=== PATIENT | female | born 1970 | race Caucasian/White ===

== ENCOUNTER 2018-02-12 16:16 | Inpatient (IN) | payer MEDICAID ==
[~2018-02-12] VITALS: Ht 162.6 cm; Wt 97.8 kg
[2018-02-12] MEDS ORDERED: normal saline 1000ML IV soln IVB ONE (16:45)
[2018-02-12] MEDS ORDERED: iohexol 350MG/ML 100ml bottle IV ONE (16:50)
[2018-02-12 17:28] LABS: BASOPHILS # (AUTO) 0.1 X10'3 (0-0.2); BASOPHILS % (AUTO) 1.6 % (0-1); EOSINOPHILS # (AUTO) 0.1 X10'3 (0-0.9); EOSINOPHILS % (AUTO) 0.6 % (0-6); HEMATOCRIT 46.8 % (35.0-45.0); HEMOGLOBIN 16.2 g/dl (12.0-16.0); LYMPHOCYTES # (AUTO) 2.7 X10'3 (1.1-4.8); LYMPHOCYTES % (AUTO) 30.2 % (21-51); MEAN CORPUSCULAR HEMOGLOBIN 31.2 PG (27.0-31.0); MEAN CORPUSCULAR HGB CONC 34.6 % (33.0-36.5); MEAN CORPUSCULAR VOLUME 90.2 FL (78-98); MEAN PLATELET VOLUME 7.2 FL (7.4-10.4); MONOCYTES # (AUTO) 0.5 X10'3 (0-0.9); MONOCYTES % (AUTO) 5.6 % (2-12); NEUTROPHILS # (AUTO) 5.5 X10'3 (1.8-7.7); PLATELET COUNT 394 X10'3 (140-440); RED BLOOD COUNT 5.19 X10'6 (4.20-5.60); RED CELL DISTRIBUTION WIDTH 14.6 % (11.5-14.5); WHITE BLOOD COUNT 8.9 X10'3 (4.5-11.0)
[2018-02-12] MEDS: MESSAGE TO NURSING PO NR ×2 (17:38→18:09)
[2018-02-12 17:41] LABS: INR 1.6 INR; PARTIAL THROMBOPLASTIN TIME 33 SECONDS (22-32); PROTHROMBIN TIME 16.6 SECONDS (9.0-12.0)
[2018-02-12] MEDS ORDERED: aspirin 325mg tablet PO ONE ×2 (17:50→21:55)
[2018-02-12] MEDS ORDERED: metoprolol tartrate 1mg/ml inj IV ONE (18:00)
[2018-02-12] MEDS ORDERED: metoprolol tartrate 50mg tablet PO ONE (18:00)
[2018-02-12] MEDS ORDERED: LORazepam 2 mg/ml vial IV ONE ×2 (18:00→20:10)
[2018-02-12 18:45] LABS: CLARITY,URINE CLEAR (Clear); COLOR,URINE YELLOW (Yellow); GLUCOSE, URINE 500 mg/dl (Neg); KETONES,URINE NEGATIVE (Neg); LEUKOCYTE ESTERASE ,URINE NEGATIVE (Neg); NITRITES, URINE NEGATIVE (Neg); OCCULT BLOOD,URINE LARGE (Neg); PROTEIN,URINE NEGATIVE (Neg); UROBILINOGEN,URINE 0.2 E.U/dL (0.2-1.0)
[2018-02-12 18:50] LABS: UA COLLECTION TYPE CLN CATCH MIDSTREAM
[2018-02-12 18:51] LABS: BACTERIA,URINE NONE SEEN /HPF (Neg); SQUAMOUS EPITHELIAL CELL,UR FEW /LPF (FEW); WBC,URINE NONE SEEN /HPF (0-4)
[2018-02-12 19:02] LABS: ALANINE AMINOTRANSFERASE 42 U/L (12-78); ALBUMIN/GLOBULIN RATIO 0.8 (1.1-1.5); ALKALINE PHOSPHATASE 67 IU/L (46-116); ANION GAP 9 (8-16); ASPARTATE AMINO TRANSFERASE 19 U/L (10-37); BILIRUBIN,TOTAL 0.2 MG/DL (0.1-1.0); BLOOD UREA NITROGEN 11 MG/DL (7-18); BUN/CREATININE RATIO 12.6 (6.6-38.0); CALCIUM 7.9 MG/DL (8.5-10.1); CHLORIDE 105 MMOL/L (99-107); CREATININE 0.87 MG/DL (0.40-0.90); GLUCOSE 208 MG/DL (70-104); POTASSIUM 3.7 MMOL/L (3.5-5.1); SODIUM 138 MMOL/L (135-145); TOTAL CARBON DIOXIDE 23.6 MMOL/L (24-32); TOTAL PROTEIN 6.7 G/DL (6.4-8.2); eGFR 70 ML/MIN
[2018-02-12] MEDS ORDERED: morphine 4 MG/ML inj SYRINge IV PRN (21:55)
[2018-02-12] MEDS ORDERED: acetaminophen 325mg tablet PO PRN ×2 (21:55)
[2018-02-12] MEDS ORDERED: nitroGLYCERIN 0.4mg SUBLingual tab SL PRN (21:55)
[2018-02-12 23:04] LABS: CHOL/HDL RATIO 6.3 (0.00-4.99); CHOLESTEROL 165 MG/DL (0-200); HDL CHOLESTEROL 26 MG/DL (35-60); LDL CHOLESTEROL 81 MG/DL (50-100); TRIGLYCERIDES 553 MG/DL (20-135)
[2018-02-13] VITALS (8 sets, daily range): BP systolic 115–160; BP diastolic 72–99
[2018-02-13] MEDS ORDERED: WARF1TAB83 PO (01:52)
[2018-02-13] MEDS ORDERED: CHOL10002 (01:52)
[2018-02-13] MEDS ORDERED: WARF-55 PO (01:52)
[2018-02-13] MEDS ORDERED: CHOL2000 PO (01:52)
[2018-02-13] MEDS ORDERED: MONVCR (01:52)
[2018-02-13] MEDS ORDERED: MYCOL30CR TP (01:52)
[2018-02-13] MEDS ORDERED: GLIM4TAB79 PO (01:52)
[2018-02-13] MEDS ORDERED: LOSA100T28 PO (01:52)
[2018-02-13] MEDS ORDERED: METF10004 PO (01:52)
[2018-02-13] MEDS ORDERED: BENZ-49 PO (01:52)
[2018-02-13] MEDS ORDERED: ATOR-2 PO (01:52)
[2018-02-13] MEDS ORDERED: LORazepam 0.5 MG tablet PO PRN (02:35)
[2018-02-13 05:47] LABS: BASOPHILS % (AUTO) 0.3 % (0-1); EOSINOPHILS # (AUTO) 0.2 X10'3 (0-0.9); EOSINOPHILS % (AUTO) 1.7 % (0-6); HEMATOCRIT 41.4 % (35.0-45.0); HEMOGLOBIN 14.3 g/dl (12.0-16.0); LYMPHOCYTES # (AUTO) 2.5 X10'3 (1.1-4.8); LYMPHOCYTES % (AUTO) 25.7 % (21-51); MEAN CORPUSCULAR HEMOGLOBIN 31.3 PG (27.0-31.0); MEAN CORPUSCULAR HGB CONC 34.4 % (33.0-36.5); MEAN CORPUSCULAR VOLUME 90.9 FL (78-98); MEAN PLATELET VOLUME 7.2 FL (7.4-10.4); MONOCYTES # (AUTO) 0.6 X10'3 (0-0.9); MONOCYTES % (AUTO) 6.2 % (2-12); NEUTROPHILS # (AUTO) 6.4 X10'3 (1.8-7.7); NEUTROPHILS % (AUTO) 66.1 % (42-75); PLATELET COUNT 340 X10'3 (140-440); RED BLOOD COUNT 4.56 X10'6 (4.20-5.60); RED CELL DISTRIBUTION WIDTH 14.5 % (11.5-14.5); WHITE BLOOD COUNT 9.7 X10'3 (4.5-11.0)
[2018-02-13 06:31] LABS: ALANINE AMINOTRANSFERASE 38 U/L (12-78); ALBUMIN 2.7 G/DL (3.4-5.0); ALBUMIN/GLOBULIN RATIO 0.8 (1.1-1.5); ALKALINE PHOSPHATASE 60 IU/L (46-116); ANION GAP 10 (8-16); ASPARTATE AMINO TRANSFERASE 17 U/L (10-37); BILIRUBIN,TOTAL 0.2 MG/DL (0.1-1.0); BLOOD UREA NITROGEN 14 MG/DL (7-18); BUN/CREATININE RATIO 17.1 (6.6-38.0); CALCIUM 8.1 MG/DL (8.5-10.1); CHLORIDE 105 MMOL/L (99-107); CREATININE 0.82 MG/DL (0.40-0.90); GLUCOSE 252 MG/DL (70-104); POTASSIUM 3.8 MMOL/L (3.5-5.1); SODIUM 139 MMOL/L (135-145); TOTAL PROTEIN 6.2 G/DL (6.4-8.2); eGFR 75 ML/MIN
[2018-02-13] MEDS: metoprolol tartrate 25mg tablet PO SCH ×2 (08:25→20:00)
[2018-02-13] MEDS: aspirin 81mg tablet.DR PO SCH (08:30)
[2018-02-13] MEDS: fenofibrate 145mg tablet PO SCH (08:30)
[2018-02-13 09:13] LABS: INR 1.6 INR; PROTHROMBIN TIME 16.4 SECONDS (9.0-12.0)
[2018-02-13] MEDS ORDERED: midazolam 2 mg/2 ml injection ONE (09:14)
[2018-02-13] MEDS ORDERED: fentaNYL/PF 50MCG/1 ML 2ML syringe ONE (09:14)
[2018-02-13] MEDS ORDERED: iohexol 350MG/ML 100ml bottle IV ONE (09:14)
[2018-02-13] MEDS ORDERED: LIDOcaine 1% w/EPI 1:100,000 30ml vial (MDV) ONE (09:14)
[2018-02-13] MEDS ORDERED: HYDROcodone/acetaminophen 10/325mg tab PO PRN (11:45)
[2018-02-13] MEDS ORDERED: OXAZEpam 15mg capsule PO PRN (11:45)
[2018-02-13] MEDS ORDERED: ondansetron/PF 4mg/2ml inj IV PRN (11:45)
[2018-02-13] MEDS ORDERED: proCHLORperazine 10 MG/2 ml inj IV PRN (11:45)
[2018-02-13] MEDS ORDERED: acetaminophen 325mg tablet PO PRN (11:45)
[2018-02-13] MEDS ORDERED: HYDROcodone/acetaminophen 5mg/325mg tablet PO PRN (11:45)
[2018-02-13] MEDS ORDERED: MESSAGE TO NURSING PO ONE ×4 (12:40)
[2018-02-13] MEDS ORDERED: dextrose 50%-water 50ml dispensing syringe IV PRN ×3 (12:40→15:05)
[2018-02-13 13:32] LABS: HEMATOCRIT 42.5 % (35.0-45.0); HEMOGLOBIN 14.6 g/dl (12.0-16.0); MEAN CORPUSCULAR HEMOGLOBIN 31.1 PG (27.0-31.0); MEAN CORPUSCULAR HGB CONC 34.2 % (33.0-36.5); MEAN CORPUSCULAR VOLUME 90.7 FL (78-98); MEAN PLATELET VOLUME 6.8 FL (7.4-10.4); PLATELET COUNT 333 X10'3 (140-440); RED BLOOD COUNT 4.69 X10'6 (4.20-5.60); RED CELL DISTRIBUTION WIDTH 14.6 % (11.5-14.5); WHITE BLOOD COUNT 9.6 X10'3 (4.5-11.0)
[2018-02-13 13:42] LABS: ALBUMIN 2.9 G/DL (3.4-5.0); ANION GAP 6 (8-16); BLOOD UREA NITROGEN 11 MG/DL (7-18); BUN/CREATININE RATIO 15.9 (6.6-38.0); CALCIUM 8.3 MG/DL (8.5-10.1); CHLORIDE 104 MMOL/L (99-107); CREATININE 0.69 MG/DL (0.40-0.90); GLUCOSE 243 MG/DL (70-104); INR 1.5 INR; PARTIAL THROMBOPLASTIN TIME 29 SECONDS (22-32); POTASSIUM 3.8 MMOL/L (3.5-5.1); PROTHROMBIN TIME 15.1 SECONDS (9.0-12.0); SODIUM 136 MMOL/L (135-145); TOTAL CARBON DIOXIDE 25.8 MMOL/L (24-32); eGFR > 90 ML/MIN
[2018-02-13 14:04] LABS: HEMOGLOBIN A1C 9.3 % (4.5-6.2)
[2018-02-13] MEDS ORDERED: dextrose ORAL solution 15 GM/59 ML bottle PO PRN ×2 (15:05)
[2018-02-13] MEDS ORDERED: glucagon, human recombinant 1mg kit SUBCUT PRN (15:05)
[2018-02-13] MEDS ORDERED: MESSAGE TO PHARMACY PO ONE (15:05)
[2018-02-13] MEDS ORDERED: LORazepam 2 mg/ml vial IV ONE (16:45)
[2018-02-13] MEDS: insulin Lispro (HumaLOG) vial - multi-dose SQ SCH (19:16)
[2018-02-13] MEDS: mupirocin 2% nasal ointment 1gm UD NS SCH (20:00)
[2018-02-13 20:01] LABS: ABG BASE EXCESS -0.6 mmol/L (-2.0-3.0); ABG HCO3 23.3 mmol/L (22.0-26.0); ABG OXYGEN SATURATION 95.3 % (95-98); ABG PCO2 (T) 35.5 mmHg (32.0-45.0); ABG PH (T) 7.432 (7.350-7.450); ABG PO2 (T) 75.9 mmHg (83-108); ALLEN'S TEST Positive; FCOHb 0.7 % (0.5-1.5); FMetHb 0.3 % (0.3-1.12); FO2Hb 94.3 % (94-100); PATIENT TEMPERATURE 36.7; RESPIRATORY RATE (OBSERVED) 16 b/min
[2018-02-13] MEDS ORDERED: insulin glargine (Lantus) pen - multi-dose SQ SCH (21:00)
[2018-02-14] VITALS (14 sets, daily range): BP systolic 92–162; BP diastolic 55–96
[2018-02-14] MEDS ORDERED: vancomycin/NS 1 GM ADD-VANTAGE 250 ML IV ONE (05:30)
[2018-02-14] MEDS ORDERED: Cefazolin 2GM/100ML NS IVPB 100 ML IV ONE (05:30)
[2018-02-14] MEDS ORDERED: insulin Lispro (HumaLOG) vial - multi-dose SQ SCH (05:30)
[2018-02-14 05:56] LABS: BASOPHILS % (AUTO) 0.2 % (0-1); EOSINOPHILS # (AUTO) 0.2 X10'3 (0-0.9); EOSINOPHILS % (AUTO) 1.5 % (0-6); HEMATOCRIT 41.1 % (35.0-45.0); HEMOGLOBIN 14.3 g/dl (12.0-16.0); LYMPHOCYTES # (AUTO) 2.5 X10'3 (1.1-4.8); LYMPHOCYTES % (AUTO) 23.8 % (21-51); MEAN CORPUSCULAR HEMOGLOBIN 31.6 PG (27.0-31.0); MEAN CORPUSCULAR HGB CONC 34.9 % (33.0-36.5); MEAN CORPUSCULAR VOLUME 90.6 FL (78-98); MEAN PLATELET VOLUME 6.9 FL (7.4-10.4); MONOCYTES # (AUTO) 0.6 X10'3 (0-0.9); MONOCYTES % (AUTO) 5.9 % (2-12); NEUTROPHILS # (AUTO) 7.3 X10'3 (1.8-7.7); NEUTROPHILS % (AUTO) 68.6 % (42-75); PLATELET COUNT 350 X10'3 (140-440); RED BLOOD COUNT 4.54 X10'6 (4.20-5.60); RED CELL DISTRIBUTION WIDTH 14.5 % (11.5-14.5); WHITE BLOOD COUNT 10.7 X10'3 (4.5-11.0)
[2018-02-14 06:06] LABS: INR 1.2 INR; PROTHROMBIN TIME 12.5 SECONDS (9.0-12.0)
[2018-02-14 06:13] LABS: ALBUMIN 2.9 G/DL (3.4-5.0); ANION GAP 8 (8-16); BLOOD UREA NITROGEN 12 MG/DL (7-18); BUN/CREATININE RATIO 17.1 (6.6-38.0); CALCIUM 8.1 MG/DL (8.5-10.1); CHLORIDE 104 MMOL/L (99-107); GLUCOSE 205 MG/DL (70-104); POTASSIUM 3.7 MMOL/L (3.5-5.1); SODIUM 138 MMOL/L (135-145); TOTAL CARBON DIOXIDE 25.6 MMOL/L (24-32); eGFR 90 ML/MIN
[2018-02-14] MEDS: fenofibrate 145mg tablet PO SCH (07:08)
[2018-02-14] MEDS: metoprolol tartrate 25mg tablet PO SCH (07:08)
[2018-02-14] MEDS: aspirin 81mg tablet.DR PO SCH (07:45)
[2018-02-14] MEDS: mupirocin 2% nasal ointment 1gm UD NS SCH ×2 (07:45→20:11)
[2018-02-14] MEDS: insulin Lispro (HumaLOG) vial - multi-dose SQ SCH ×2 (07:52→18:00)
[2018-02-14] MEDS ORDERED: atorvastatin 20mg tablet PO SCH (08:00)
[2018-02-14] MEDS ORDERED: MESSAGE TO NURSING PO ONE (10:00)
[2018-02-14] MEDS: MESSAGE TO NURSING PO NR (11:26)
[2018-02-14] MEDS ORDERED: MIDAZolam 1mg/ml 10ml vial ONE (12:08)
[2018-02-14] MEDS ORDERED: SUFENTANIL CITRATE 50 MCG/ML 2ml ampule IV ONE (12:08)
[2018-02-14] MEDS ORDERED: pancuronium br 1mg/ml inj IV ONE (12:10)
[2018-02-14] MEDS ORDERED: propofol inj 20 ML IV ONE (12:10)
[2018-02-14] MEDS ORDERED: LIDOcaine 2% (20mg/ml) 5ml vial ONE (12:10)
[2018-02-14] MEDS ORDERED: protamine sulf. 10mg/ml inj. IV ONE (12:22)
[2018-02-14] MEDS ORDERED: labetalol 5mg/ml 20ml inj. IV ONE ×2 (12:22→13:30)
[2018-02-14] MEDS ORDERED: sevoflurane 250ml liquid IH ONE (12:22)
[2018-02-14 13:30] LABS: ABG BASE EXCESS -0.5 mmol/L (-2.0-3.0); ABG HCO3 23.5 mmol/L (22.0-26.0); ABG OXYGEN SATURATION 99.2 % (95-98); ABG PCO2 36.5 mmHg (35.0-45.0); ABG PH 7.427 (7.350-7.450); ABG PO2 358.6 mmHg (60.0-100.0); CL (ABG) 107 mmol/L (99-107); FCOHb 0.6 % (0.5-1.5); FMetHb 0.1 % (0.3-1.12); FO2Hb 98.5 % (94-100); GLUCOSE (ABG) 189 mg/dl (70-105); IONIZED CA (ABG) 1.06 mmol/L (1.03-1.32); K (ABG) 3.2 mmol/L (3.3-5.1); NA (ABG) 134 mmol/L (135-145); TOTAL HEMOGLOBIN 13.2 G/dl (12.0-16.0)
[2018-02-14] MEDS ORDERED: heparin 10,000 units/1 ML INJ IJ ONE (13:36)
[2018-02-14] MEDS ORDERED: papaverine 30 mg/ml 2ml inj. IA ONE (13:36)
[2018-02-14 14:21] LABS: ABG BASE EXCESS VENOUS -3.8 mmol/L; ABG HCO3 VENOUS 22.5 mmol/L; ABG PCO2 VENOUS 45.9 mmHg; ABG PO2 VENOUS 41.4 mmHg; CL (ABG) 105 mmol/L (99-107); FHHb VENOUS 27.2 %; FMetHb VENOUS 0.3 %; FO2Hb VENOUS 71.5 %; GLUCOSE (ABG) 147 mg/dl (70-105); IONIZED CA (ABG) 1.08 mmol/L (1.03-1.32); K (ABG) 3.4 mmol/L (3.3-5.1); NA (ABG) 134 mmol/L (135-145); TOTAL HEMOGLOBIN 12.8 G/dl (12.0-16.0)
[2018-02-14] MEDS ORDERED: fentaNYL /PF 50mcg/ml 5ml ampule ONE ×2 (14:21)
[2018-02-14 14:31] LABS: ACT @ 1.70 U 270 SEC (193-297); ACT @ 2.84 U 406 SEC (260-420); BASELINE ACT 129 SEC (101-148); PATIENT WEIGHT 94.0k KG
[2018-02-14 14:45] LABS: ABG BASE EXCESS -0.3 mmol/L (-2.0-3.0); ABG OXYGEN SATURATION 98.7 % (95-98); ABG PCO2 43.8 mmHg (35.0-45.0); ABG PH 7.374 (7.350-7.450); ABG PO2 408.8 mmHg (60.0-100.0); CL (ABG) 104 mmol/L (99-107); FCOHb 0.3 % (0.5-1.5); FMetHb 0.7 % (0.3-1.12); FO2Hb 97.7 % (94-100); GLUCOSE (ABG) 132 mg/dl (70-105); IONIZED CA (ABG) 0.85 mmol/L (1.03-1.32); K (ABG) 4.8 mmol/L (3.3-5.1); NA (ABG) 131 mmol/L (135-145); TOTAL HEMOGLOBIN 9.3 G/dl (12.0-16.0)
[2018-02-14 15:01] LABS: ABG BASE EXCESS VENOUS -0.1 mmol/L; ABG HCO3 VENOUS 26.3 mmol/L; ABG PCO2 VENOUS 51.4 mmHg; ABG PO2 VENOUS 49.1 mmHg; CL (ABG) 106 mmol/L (99-107); FCOHb VENOUS 0.3 %; FHHb VENOUS 19.1 %; FMetHb VENOUS 0.7 %; FO2Hb VENOUS 79.9 %; GLUCOSE (ABG) 136 mg/dl (70-105); IONIZED CA (ABG) 0.95 mmol/L (1.03-1.32); K (ABG) 4.2 mmol/L (3.3-5.1); NA (ABG) 134 mmol/L (135-145)
[2018-02-14 15:35] LABS: ABG HCO3 28.7 mmol/L (22.0-26.0); ABG OXYGEN SATURATION 98.6 % (95-98); ABG PCO2 49.6 mmHg (35.0-45.0); CL (ABG) 108 mmol/L (99-107); FCOHb 0.3 % (0.5-1.5); FMetHb 0.6 % (0.3-1.12); FO2Hb 97.7 % (94-100); GLUCOSE (ABG) 127 mg/dl (70-105); K (ABG) 3.8 mmol/L (3.3-5.1); NA (ABG) 135 mmol/L (135-145); TOTAL HEMOGLOBIN 9.8 G/dl (12.0-16.0)
[2018-02-14 16:25] LABS: ABG HCO3 VENOUS 15.9 mmol/L; ABG PCO2 VENOUS 30.2 mmHg; ABG PO2 VENOUS 39.5 mmHg; CL (ABG) 107 mmol/L (99-107); FCOHb VENOUS 0.9 %; FHHb VENOUS 29.3 %; FO2Hb VENOUS 68.8 %; GLUCOSE (ABG) 66 mg/dl (70-105); K (ABG) 3.8 mmol/L (3.3-5.1); NA (ABG) 131 mmol/L (135-145); TOTAL HEMOGLOBIN 6.5 G/dl (12.0-16.0)
[2018-02-14 16:40] LABS: ABG BASE EXCESS VENOUS -6.3 mmol/L; ABG HCO3 VENOUS 18.4 mmol/L; ABG PCO2 VENOUS 33.6 mmHg; ABG PO2 VENOUS 34.3 mmHg; CL (ABG) 108 mmol/L (99-107); FCOHb VENOUS 0.9 %; FMetHb VENOUS 0.7 %; FO2Hb VENOUS 63.4 %; GLUCOSE (ABG) 70 mg/dl (70-105); IONIZED CA (ABG) 1.12 mmol/L (1.03-1.32); K (ABG) 3.9 mmol/L (3.3-5.1); NA (ABG) 133 mmol/L (135-145); TOTAL HEMOGLOBIN 9.3 G/dl (12.0-16.0)
[2018-02-14] MEDS ORDERED: miconazole nitrate 2% 45gm VAG cream VG PRN (17:00)
[2018-02-14] MEDS ORDERED: benzonatate 100mg capsule PO PRN (17:00)
[2018-02-14] MEDS ORDERED: sodium chloride 0.45% 1,000 ML IV SCH (17:01)
[2018-02-14] MEDS ORDERED: nitroGLYCERIN-Tridil 50MG/D5W 250 ML IV PRN (17:01)
[2018-02-14] MEDS ORDERED: DOPamine 400mg/D5W 250ml 250 ML IV PRN (17:01)
[2018-02-14] MEDS ORDERED: niCARDipine/sod cl 20mg/200ml 200 ML IV PRN (17:01)
[2018-02-14] MEDS ORDERED: ondansetron/PF 4mg/2ml inj IV PRN (17:05)
[2018-02-14] MEDS ORDERED: acetaminophen 325mg tablet PO PRN (17:05)
[2018-02-14] MEDS ORDERED: metoclopramide 5 mg/ml inj IV PRN (17:05)
[2018-02-14] MEDS ORDERED: magnesium 2GM in 50ml NS 50 ML IV PRN (17:05)
[2018-02-14] MEDS ORDERED: magnesium hydroxide 30ml (MOM) UD suspension PO PRN (17:05)
[2018-02-14] MEDS ORDERED: magnesium 4gm in 100ml NS 100 ML IV PRN (17:05)
[2018-02-14] MEDS ORDERED: potassium Cl 20mEq/100mL bag 100 ML IV PRN ×2 (17:05)
[2018-02-14] MEDS ORDERED: dextrose 50%-water 50ml dispensing syringe IV PRN (17:05)
[2018-02-14] MEDS ORDERED: sodium phosphate inj. 15 MMOL in dextrose 5%-water 150 ML IV PRN (17:05)
[2018-02-14] MEDS ORDERED: Neutra Phos packet PO PRN (17:05)
[2018-02-14] MEDS ORDERED: sodium phosphate inj. 30 MMOL in dextrose 5%-water 250 ML IV PRN (17:05)
[2018-02-14] MEDS ORDERED: normal saline 250ml IV soln 250 ML IV PRN (17:05)
[2018-02-14 17:16] LABS: ABG BASE EXCESS -1.5 mmol/L (-2.0-3.0); ABG HCO3 24.8 mmol/L (22.0-26.0); ABG OXYGEN SATURATION 94.9 % (95-98); ABG PCO2 (T) 46.9 mmHg (32.0-45.0); ABG PH (T) 7.339 (7.350-7.450); ABG PO2 (T) 81.7 mmHg (83-108); FCOHb 0.3 % (0.5-1.5); FMetHb 0.3 % (0.3-1.12); FO2Hb 94.3 % (94-100); MINUTE VOLUME 8 L/min; PATIENT TEMPERATURE 36.7; PEEP 5 cm H2O; RESPIRATORY RATE 10 b/min; RESPIRATORY RATE (OBSERVED) 10 b/min; TIDAL VOLUME 650 mL; TOTAL HEMOGLOBIN 13.5 G/dl (12.0-16.0)
[2018-02-14 17:20] LABS: BASOPHILS % (AUTO) 0.1 % (0-1); EOSINOPHILS % (AUTO) 0 % (0-6); HEMATOCRIT 37.5 % (35.0-45.0); HEMOGLOBIN 12.8 g/dl (12.0-16.0); LYMPHOCYTES # (AUTO) 1.1 X10'3 (1.1-4.8); LYMPHOCYTES % (AUTO) 7.1 % (21-51); MEAN CORPUSCULAR HGB CONC 34.1 % (33.0-36.5); MEAN PLATELET VOLUME 6.5 FL (7.4-10.4); MONOCYTES # (AUTO) 1.1 X10'3 (0-0.9); MONOCYTES % (AUTO) 6.8 % (2-12); NEUTROPHILS # (AUTO) 13.9 X10'3 (1.8-7.7); PLATELET COUNT 245 X10'3 (140-440); RED BLOOD COUNT 4.13 X10'6 (4.20-5.60); RED CELL DISTRIBUTION WIDTH 14.3 % (11.5-14.5); WHITE BLOOD COUNT 16.2 X10'3 (4.5-11.0)
[2018-02-14 17:36] LABS: ALANINE AMINOTRANSFERASE 28 U/L (12-78); ALBUMIN 2.4 G/DL (3.4-5.0); ALKALINE PHOSPHATASE 41 IU/L (46-116); ANION GAP 8 (8-16); BILIRUBIN,TOTAL 0.6 MG/DL (0.1-1.0); BLOOD UREA NITROGEN 8 MG/DL (7-18); BUN/CREATININE RATIO 9.9 (6.6-38.0); CALCIUM 7.9 MG/DL (8.5-10.1); CHLORIDE 112 MMOL/L (99-107); CREATININE 0.81 MG/DL (0.40-0.90); GLUCOSE 140 MG/DL (70-104); MAGNESIUM 2.9 MG/DL (1.5-2.4); SODIUM 145 MMOL/L (135-145); TOTAL CARBON DIOXIDE 25.4 MMOL/L (24-32); TOTAL PROTEIN 4.9 G/DL (6.4-8.2); eGFR 76 ML/MIN
[2018-02-14 17:37] LABS: ASPARTATE AMINO TRANSFERASE 46 U/L (10-37); PHOSPHORUS 2.2 MG/DL (2.3-4.5); POTASSIUM 4.3 MMOL/L (3.5-5.1)
[2018-02-14 17:44] LABS: INR 1.2 INR; PARTIAL THROMBOPLASTIN TIME 27 SECONDS (22-32); PROTHROMBIN TIME 12.6 SECONDS (9.0-12.0)
[2018-02-14] MEDS: morphine 4 MG/ML inj SYRINge IV PRN ×3 (17:49→21:54)
[2018-02-14] MEDS: insulin regular, human inj. 100 UNITS in normal saline 100ml IV soln 100 ML IV SCH ×10 (19:00→23:23)
[2018-02-14] MEDS: potassium Cl 20mEq/100mL bag 100 ML IV PRN (19:14)
[2018-02-14] MEDS: docusate sod 100mg capsule PO SCH (20:00)
[2018-02-14] MEDS: vancomycin/NS 1 GM ADD-VANTAGE 250 ML IV SCH (20:12)
[2018-02-14] MEDS: albumin (Human) 5% 250ml 250 ML IV PRN ×2 (20:23→21:53)
[2018-02-15] VITALS (24 sets, daily range): BP systolic 79–122; BP diastolic 54–72
[2018-02-15] MEDS: insulin regular, human inj. 100 UNITS in normal saline 100ml IV soln 100 ML IV SCH ×18 (00:10→23:12)
[2018-02-15] MEDS: ceFAZolin 1GM/D5W- ADD-VANTAGE 50 ML IV SCH ×4 (00:11→23:59)
[2018-02-15 00:45] LABS: ALBUMIN 3.2 G/DL (3.4-5.0); ANION GAP 8 (8-16); BLOOD UREA NITROGEN 13 MG/DL (7-18); BUN/CREATININE RATIO 13.8 (6.6-38.0); CALCIUM 8.3 MG/DL (8.5-10.1); CHLORIDE 113 MMOL/L (99-107); CREATININE 0.94 MG/DL (0.40-0.90); GLUCOSE 208 MG/DL (70-104); POTASSIUM 4.1 MMOL/L (3.5-5.1); SODIUM 145 MMOL/L (135-145); TOTAL CARBON DIOXIDE 24.2 MMOL/L (24-32); eGFR 64 ML/MIN
[2018-02-15 01:02] LABS: BASOPHILS % (AUTO) 0 % (0-1); EOSINOPHILS # (AUTO) 0.1 X10'3 (0-0.9); EOSINOPHILS % (AUTO) 0.5 % (0-6); HEMATOCRIT 35.3 % (35.0-45.0); LYMPHOCYTES # (AUTO) 0.7 X10'3 (1.1-4.8); LYMPHOCYTES % (AUTO) 3.7 % (21-51); MEAN CORPUSCULAR HEMOGLOBIN 31.2 PG (27.0-31.0); MEAN CORPUSCULAR VOLUME 91.6 FL (78-98); MEAN PLATELET VOLUME 7.3 FL (7.4-10.4); MONOCYTES # (AUTO) 0.6 X10'3 (0-0.9); MONOCYTES % (AUTO) 3.1 % (2-12); NEUTROPHILS # (AUTO) 16.5 X10'3 (1.8-7.7); NEUTROPHILS % (AUTO) 92.7 % (42-75); PLATELET COUNT 249 X10'3 (140-440); RED BLOOD COUNT 3.85 X10'6 (4.20-5.60); RED CELL DISTRIBUTION WIDTH 14.8 % (11.5-14.5); WHITE BLOOD COUNT 17.8 X10'3 (4.5-11.0)
[2018-02-15] MEDS ORDERED: albuterol 2.5 MG/3 ML nebule NEB PRN (01:25)
[2018-02-15 01:41] LABS: ABG BASE EXCESS -4.1 mmol/L (-2.0-3.0); ABG HCO3 21.4 mmol/L (22.0-26.0); ABG OXYGEN SATURATION 91.4 % (95-98); ABG PCO2 (T) 40.2 mmHg (32.0-45.0); ABG PH (T) 7.343 (7.350-7.450); ABG PO2 (T) 64.5 mmHg (83-108); FCOHb 0.3 % (0.5-1.5); FMetHb 0.3 % (0.3-1.12); FO2Hb 90.9 % (94-100); MINUTE VOLUME 9 L/min; PATIENT TEMPERATURE 36.8; PEEP 5 cm H2O; RESPIRATORY RATE (OBSERVED) 18 b/min; TOTAL HEMOGLOBIN 12.6 G/dl (12.0-16.0)
[2018-02-15] MEDS: morphine 4 MG/ML inj SYRINge IV PRN ×2 (05:11→06:57)
[2018-02-15 05:16] LABS: ACTIVATED CLOTTING TIME 140 SEC (101-148)
[2018-02-15] MEDS: HYDROcodone/acetaminophen 10/325mg tab PO PRN ×3 (06:59→23:59)
[2018-02-15] MEDS ORDERED: atorvastatin 10mg tablet PO SCH (08:00)
[2018-02-15] MEDS ORDERED: ketorolac trometh. 30mg/ml inj. IV ONE (08:25)
[2018-02-15] MEDS: vancomycin/NS 1 GM ADD-VANTAGE 250 ML IV SCH ×2 (08:55→19:35)
[2018-02-15] MEDS: pantoprazole 40mg Tablet.DR PO SCH (08:56)
[2018-02-15] MEDS: aspirin 325mg tablet, delayed-release (Ecotrin) PO SCH (08:56)
[2018-02-15] MEDS: vitamin D (cholecalciferol) 1,000 unit tablet PO SCH (08:56)
[2018-02-15] MEDS: metoprolol tartrate 12.5mg (1/2 tablet) PO SCH ×2 (08:56→19:37)
[2018-02-15] MEDS: docusate sod 100mg capsule PO SCH ×2 (08:56→19:45)
[2018-02-15] MEDS: mupirocin 2% nasal ointment 1gm UD NS SCH ×2 (08:56→19:36)
[2018-02-15] MEDS: insulin Lispro (HumaLOG) vial - multi-dose SQ SCH ×3 (09:14→19:40)
[2018-02-15] MEDS: buPROPion 75mg tablet PO SCH ×2 (13:23→22:06)
[2018-02-15] MEDS: potassium Cl 20mEq/100mL bag 100 ML IV PRN (13:28)
[2018-02-15] MEDS: ketorolac tromethamine 15mg/ml inj. IV SCH ×2 (13:41→19:36)
[2018-02-15] MEDS ORDERED: albumin (Human) 5% 250 ML IV solution IV STA (15:13)
[2018-02-15 16:22] LABS: MAGNESIUM 2.2 MG/DL (1.5-2.4); POTASSIUM 5.2 MMOL/L (3.5-5.1)
[2018-02-15] MEDS: lactobacillus rhamnosus 10,000 MMU CELLS/CAPSULE PO SCH (19:36)
[2018-02-16] VITALS (14 sets, daily range): BP systolic 90–118; BP diastolic 60–79
[2018-02-16] MEDS: insulin regular, human inj. 100 UNITS in normal saline 100ml IV soln 100 ML IV SCH ×10 (00:06→05:53)
[2018-02-16] MEDS: ketorolac tromethamine 15mg/ml inj. IV SCH ×2 (01:58→07:42)
[2018-02-16 04:33] LABS: BASOPHILS % (AUTO) 0.1 % (0-1); EOSINOPHILS # (AUTO) 0.2 X10'3 (0-0.9); HEMATOCRIT 31.6 % (35.0-45.0); HEMOGLOBIN 10.6 g/dl (12.0-16.0); LYMPHOCYTES # (AUTO) 1.6 X10'3 (1.1-4.8); LYMPHOCYTES % (AUTO) 9.3 % (21-51); MEAN CORPUSCULAR HEMOGLOBIN 31.3 PG (27.0-31.0); MEAN CORPUSCULAR HGB CONC 33.5 % (33.0-36.5); MEAN CORPUSCULAR VOLUME 93.4 FL (78-98); MEAN PLATELET VOLUME 7.2 FL (7.4-10.4); MONOCYTES % (AUTO) 5.6 % (2-12); NEUTROPHILS # (AUTO) 14.9 X10'3 (1.8-7.7); PLATELET COUNT 213 X10'3 (140-440); RED BLOOD COUNT 3.39 X10'6 (4.20-5.60); RED CELL DISTRIBUTION WIDTH 15.4 % (11.5-14.5); WHITE BLOOD COUNT 17.7 X10'3 (4.5-11.0)
[2018-02-16 04:47] LABS: ANION GAP 10 (8-16); BLOOD UREA NITROGEN 20 MG/DL (7-18); BUN/CREATININE RATIO 17.9 (6.6-38.0); CALCIUM 7.7 MG/DL (8.5-10.1); CHLORIDE 106 MMOL/L (99-107); CREATININE 1.12 MG/DL (0.40-0.90); GLUCOSE 87 MG/DL (70-104); MAGNESIUM 2.8 MG/DL (1.5-2.4); PHOSPHORUS 3.1 MG/DL (2.3-4.5); POTASSIUM 3.7 MMOL/L (3.5-5.1); SODIUM 139 MMOL/L (135-145); TOTAL CARBON DIOXIDE 23.5 MMOL/L (24-32); eGFR 52 ML/MIN
[2018-02-16] MEDS ORDERED: furosemide 40mg/4ml inj IV ONE (06:45)
[2018-02-16] MEDS ORDERED: magnesium 4gm in 100ml NS 100 ML IV PRN (06:50)
[2018-02-16] MEDS ORDERED: magnesium 2GM in 50ml NS 50 ML IV PRN (06:50)
[2018-02-16] MEDS ORDERED: potassium Cl 40MEQ/NS 500ml 500 ML IV PRN ×2 (06:50)
[2018-02-16] MEDS ORDERED: potassium Cl 20 mEq SR tablet PO PRN ×2 (06:50)
[2018-02-16] MEDS ORDERED: magnesium Cl slow-release 64mg tablet PO PRN (06:50)
[2018-02-16] MEDS ORDERED: dextrose ORAL solution 15 GM/59 ML bottle PO PRN ×2 (07:15)
[2018-02-16] MEDS ORDERED: glucagon, human recombinant 1mg kit SUBCUT PRN (07:15)
[2018-02-16] MEDS ORDERED: dextrose 50%-water 50ml dispensing syringe IV PRN ×2 (07:15)
[2018-02-16] MEDS ORDERED: MESSAGE TO PHARMACY PO ONE (07:15)
[2018-02-16] MEDS: docusate sod 100mg capsule PO SCH ×2 (07:39→19:28)
[2018-02-16] MEDS: magnesium Cl slow-release 64mg tablet PO SCH ×2 (07:40→19:27)
[2018-02-16] MEDS: potassium Cl 20 mEq SR tablet PO SCH ×2 (07:40→19:26)
[2018-02-16] MEDS: buPROPion 75mg tablet PO SCH ×3 (07:44→20:54)
[2018-02-16] MEDS: aspirin 325mg tablet, delayed-release (Ecotrin) PO SCH (07:44)
[2018-02-16] MEDS: HYDROcodone/acetaminophen 10/325mg tab PO PRN ×4 (07:45→21:27)
[2018-02-16] MEDS: vitamin D (cholecalciferol) 1,000 unit tablet PO SCH (07:46)
[2018-02-16] MEDS: lactobacillus rhamnosus 10,000 MMU CELLS/CAPSULE PO SCH ×2 (07:47→19:26)
[2018-02-16] MEDS: metoprolol tartrate 12.5mg (1/2 tablet) PO SCH ×2 (07:47→19:26)
[2018-02-16] MEDS: metFORMIN 500mg tablet PO SCH ×2 (07:49→17:56)
[2018-02-16] MEDS: pantoprazole 40mg Tablet.DR PO SCH (07:52)
[2018-02-16] MEDS: mupirocin 2% nasal ointment 1gm UD NS SCH (07:59)
[2018-02-16] MEDS: K and/or MAG REPLACEMENT MC SCH (08:00)
[2018-02-16] MEDS: insulin Lispro (HumaLOG) vial - multi-dose SQ SCH (12:57)
[2018-02-16] MEDS: atorvastatin 10mg tablet PO SCH (20:54)
[2018-02-16] MEDS: insulin glargine (Lantus) pen - multi-dose SQ SCH (21:02)
[2018-02-17] VITALS (7 sets, daily range): BP systolic 115–133; BP diastolic 74–81
[2018-02-17] MEDS: HYDROcodone/acetaminophen 10/325mg tab PO PRN ×3 (03:35→20:55)
[2018-02-17] MEDS ORDERED: furosemide 40mg/4ml inj IV ONE (06:00)
[2018-02-17 07:00] LABS: BASOPHILS % (AUTO) 0.1 % (0-1); EOSINOPHILS # (AUTO) 0.1 X10'3 (0-0.9); EOSINOPHILS % (AUTO) 1.2 % (0-6); HEMATOCRIT 28.8 % (35.0-45.0); HEMOGLOBIN 9.8 g/dl (12.0-16.0); LYMPHOCYTES # (AUTO) 1.9 X10'3 (1.1-4.8); LYMPHOCYTES % (AUTO) 14.8 % (21-51); MEAN CORPUSCULAR HEMOGLOBIN 31.8 PG (27.0-31.0); MEAN CORPUSCULAR VOLUME 93.3 FL (78-98); MEAN PLATELET VOLUME 7.4 FL (7.4-10.4); MONOCYTES # (AUTO) 0.9 X10'3 (0-0.9); MONOCYTES % (AUTO) 7.1 % (2-12); NEUTROPHILS # (AUTO) 9.7 X10'3 (1.8-7.7); NEUTROPHILS % (AUTO) 76.8 % (42-75); PLATELET COUNT 213 X10'3 (140-440); RED BLOOD COUNT 3.09 X10'6 (4.20-5.60); RED CELL DISTRIBUTION WIDTH 15.1 % (11.5-14.5); WHITE BLOOD COUNT 12.7 X10'3 (4.5-11.0)
[2018-02-17 07:14] LABS: ALBUMIN 2.7 G/DL (3.4-5.0); ANION GAP 8 (8-16); BLOOD UREA NITROGEN 26 MG/DL (7-18); CALCIUM 7.9 MG/DL (8.5-10.1); CHLORIDE 106 MMOL/L (99-107); CREATININE 0.93 MG/DL (0.40-0.90); GLUCOSE 224 MG/DL (70-104); MAGNESIUM 2.3 MG/DL (1.5-2.4); POTASSIUM 4.8 MMOL/L (3.5-5.1); SODIUM 138 MMOL/L (135-145); TOTAL CARBON DIOXIDE 23.9 MMOL/L (24-32); eGFR 65 ML/MIN
[2018-02-17] MEDS: pantoprazole 40mg Tablet.DR PO SCH (07:15)
[2018-02-17] MEDS: buPROPion 75mg tablet PO SCH ×3 (07:15→20:54)
[2018-02-17] MEDS: lactobacillus rhamnosus 10,000 MMU CELLS/CAPSULE PO SCH ×2 (07:15→20:54)
[2018-02-17] MEDS: metFORMIN 500mg tablet PO SCH ×2 (07:15→18:12)
[2018-02-17] MEDS: vitamin D (cholecalciferol) 1,000 unit tablet PO SCH (07:16)
[2018-02-17] MEDS: magnesium Cl slow-release 64mg tablet PO SCH ×2 (07:16→20:00)
[2018-02-17] MEDS: aspirin 325mg tablet, delayed-release (Ecotrin) PO SCH (07:39)
[2018-02-17] MEDS: metoprolol tartrate 12.5mg (1/2 tablet) PO SCH ×2 (07:42→20:56)
[2018-02-17] MEDS: potassium Cl 20 mEq SR tablet PO SCH ×2 (07:42→20:00)
[2018-02-17] MEDS: docusate sod 100mg capsule PO SCH ×3 (07:50→13:31)
[2018-02-17] MEDS: K and/or MAG REPLACEMENT MC SCH (08:00)
[2018-02-17] MEDS: insulin Lispro (HumaLOG) vial - multi-dose SQ SCH ×2 (10:21→13:45)
[2018-02-17] MEDS: Protein Smoothie (high protein) 240ml (8oz) cup PO SCH (18:00)
[2018-02-17] MEDS: atorvastatin 10mg tablet PO SCH (20:55)
[2018-02-17] MEDS: insulin glargine (Lantus) pen - multi-dose SQ SCH (21:09)
[2018-02-18 03:00] VITALS: BP 127/86
[2018-02-18] MEDS: HYDROcodone/acetaminophen 10/325mg tab PO PRN ×3 (04:22→14:08)
[2018-02-18 06:00] VITALS: BP 117/77
[2018-02-18 06:03] LABS: BASOPHILS % (AUTO) 0.2 % (0-1); EOSINOPHILS # (AUTO) 0.2 X10'3 (0-0.9); EOSINOPHILS % (AUTO) 1.9 % (0-6); HEMATOCRIT 28.4 % (35.0-45.0); HEMOGLOBIN 9.7 g/dl (12.0-16.0); LYMPHOCYTES % (AUTO) 21.1 % (21-51); MEAN CORPUSCULAR HEMOGLOBIN 31.6 PG (27.0-31.0); MEAN CORPUSCULAR HGB CONC 34.3 % (33.0-36.5); MEAN CORPUSCULAR VOLUME 92.1 FL (78-98); MONOCYTES # (AUTO) 0.8 X10'3 (0-0.9); MONOCYTES % (AUTO) 8.6 % (2-12); NEUTROPHILS # (AUTO) 6.5 X10'3 (1.8-7.7); NEUTROPHILS % (AUTO) 68.2 % (42-75); PLATELET COUNT 238 X10'3 (140-440); RED BLOOD COUNT 3.08 X10'6 (4.20-5.60); RED CELL DISTRIBUTION WIDTH 15.2 % (11.5-14.5); WHITE BLOOD COUNT 9.6 X10'3 (4.5-11.0)
[2018-02-18 06:50] LABS: ALBUMIN 2.5 G/DL (3.4-5.0); ANION GAP 7 (8-16); BLOOD UREA NITROGEN 22 MG/DL (7-18); BUN/CREATININE RATIO 31.4 (6.6-38.0); CALCIUM 7.9 MG/DL (8.5-10.1); CHLORIDE 104 MMOL/L (99-107); GLUCOSE 171 MG/DL (70-104); POTASSIUM 3.9 MMOL/L (3.5-5.1); SODIUM 138 MMOL/L (135-145); eGFR 90 ML/MIN
[2018-02-18] MEDS: K and/or MAG REPLACEMENT MC SCH (08:00)
[2018-02-18] MEDS: Protein Smoothie (high protein) 240ml (8oz) cup PO SCH ×2 (08:00→13:00)
[2018-02-18] MEDS: magnesium Cl slow-release 64mg tablet PO SCH (08:00)
[2018-02-18] MEDS: docusate sod 100mg capsule PO SCH (08:59)
[2018-02-18] MEDS: pantoprazole 40mg Tablet.DR PO SCH (08:59)
[2018-02-18] MEDS: metoprolol tartrate 12.5mg (1/2 tablet) PO SCH (08:59)
[2018-02-18] MEDS: potassium Cl 20 mEq SR tablet PO SCH (09:00)
[2018-02-18] MEDS: aspirin 325mg tablet, delayed-release (Ecotrin) PO SCH (09:00)
[2018-02-18] MEDS: metFORMIN 500mg tablet PO SCH (09:00)
[2018-02-18] MEDS: vitamin D (cholecalciferol) 1,000 unit tablet PO SCH (09:01)
[2018-02-18] MEDS: buPROPion 75mg tablet PO SCH ×2 (09:01→14:06)
[2018-02-18] MEDS: lactobacillus rhamnosus 10,000 MMU CELLS/CAPSULE PO SCH (09:01)
[2018-02-18] MEDS: insulin Lispro (HumaLOG) vial - multi-dose SQ SCH ×2 (09:08→14:12)
[2018-02-18] MEDS ORDERED: COL100C PO (10:07)
[2018-02-18] MEDS ORDERED: ASPI-41 PO (10:07)
[2018-02-18] MEDS ORDERED: BUPR75TA12 PO (10:07)
[2018-02-18] MEDS ORDERED: METO25TA6 PO (10:07)
[2018-02-18] MEDS ORDERED: LANTUS SQ (10:07)
[2018-02-18] MEDS ORDERED: HYDR-3972 PO (10:07)
[2018-02-18 11:00] VITALS: BP 153/87
[2018-02-18 15:00] VITALS: BP 153/75
== END 2018-02-18 16:30 | disposition home or self-care (01) | DRG 165 ==
LOC: ER 16:16 → ED HOLD 21:54 → PCU 3S 02-13 02:02 → PACU 02-14 12:30 → CICU 2S 02-14 16:15 → PCU 3S 02-16 10:52
PROVIDERS: ADMIT Internal Medicine; ATTEND Internal Medicine Interventional Cardiology
PROC: B2261ZZ Computerized Tomography (CT Scan) of Right and Left Heart using Low Osmolar Contrast (ICD-10-PCS; 2018-02-12)
PROC: 4A023N7 Measurement of Cardiac Sampling and Pressure, Left Heart, Percutaneous Approach (ICD-10-PCS; 2018-02-13)
PROC: B2111ZZ Fluoroscopy of Multiple Coronary Arteries using Low Osmolar Contrast (ICD-10-PCS; 2018-02-13)
PROC: B2151ZZ Fluoroscopy of Left Heart using Low Osmolar Contrast (ICD-10-PCS; 2018-02-13)
PROC: B2181ZZ Fluoroscopy of Left Internal Mammary Bypass Graft using Low Osmolar Contrast (ICD-10-PCS; 2018-02-13)
PROC: 05HM33Z Insertion of Infusion Device into Right Internal Jugular Vein, Percutaneous Approach (ICD-10-PCS; 2018-02-14)
PROC: B543ZZA Ultrasonography of Right Jugular Veins, Guidance (ICD-10-PCS; 2018-02-14)
PROC: 021109W Bypass Coronary Artery, Two Arteries from Aorta with Autologous Venous Tissue, Open Approach (ICD-10-PCS; 2018-02-14)
PROC: B24BZZ4 Ultrasonography of Heart with Aorta, Transesophageal (ICD-10-PCS; 2018-02-14)
PROC: 5A1221Z Performance of Cardiac Output, Continuous (ICD-10-PCS; 2018-02-14)
PROC: 06BQ4ZZ Excision of Left Saphenous Vein, Percutaneous Endoscopic Approach (ICD-10-PCS; 2018-02-14)
PROC: 02100Z9 Bypass Coronary Artery, One Artery from Left Internal Mammary, Open Approach (ICD-10-PCS; principal; 2018-02-14 12:27)
DX: I21.4 Non-ST elevation (NSTEMI) myocardial infarction (principal); E66.01 Morbid (severe) obesity due to excess calories; I82.401 Acute embolism and thrombosis of unspecified deep veins of right lower extremity; Z68.37 Body mass index [BMI] 37.0-37.9, adult; E11.9 Type 2 diabetes mellitus without complications; E78.1 Pure hyperglyceridemia; E78.5 Hyperlipidemia, unspecified; F17.210 Nicotine dependence, cigarettes, uncomplicated; I25.110 Atherosclerotic heart disease of native coronary artery with unstable angina pectoris; G89.29 Other chronic pain; I10 Essential (primary) hypertension; Z79.01 Long term (current) use of anticoagulants; Z79.899 Other long term (current) drug therapy; Z82.49 Family history of ischemic heart disease and other diseases of the circulatory system; Z88.1 Allergy status to other antibiotic agents; Z71.6 Tobacco abuse counseling; Z90.49 Acquired absence of other specified parts of digestive tract
CPT/HCPCS: 0232T; 36415; 36600; 71045; 71275; 80048; 80053; 80061; 81001; 82330; 82435; 82803; 82947; 82948; 83036; 83735; 83880; 84100; 84132; 84145; 84295; 84484; 85018; 85025; 85027; 85347; 85379; 85384; 85610; 85730; 86885; 86900; 86901; 86920; 87070; 93005; 93306; 93312; 93325; 93458; 93880; 93971; 94002; 94003; 94010; 94640; 94760; 97110; 97116; 97162; 97530; 99152; 99285; A4620; A6213; A6222; A6255; A6257; A6258; A6402; A6449; A7000; A7048; C1713; C1751; C1769; J0690; J1644; J1815; J1885; J1940; J2001; J2060; J2250; J2270; J2440; J2704; J2720; J3010; J3370; J3475; J3480; J3490; J7030; J7060; J7120; P9045; Q9967

== ENCOUNTER 2018-03-17 11:42 | Emergency (ER) | payer MEDICAID ==
[~2018-03-17] VITALS: Ht 162.6 cm; Wt 89.0 kg
[~2018-03-17 11:42] MED LIST: ASPI-41 PO; ATOR-2 PO; BENZ-49 PO; BUPR75TA12 PO; CHOL2000 PO; COL100C PO; HYDR-3972 PO; LANTUS SQ; METF10004 PO; METO25TA6 PO; MONVCR; MYCOL30CR TP
[2018-03-17 14:53] LABS: BASOPHILS # (AUTO) 0.1 X10'3 (0-0.2); BASOPHILS % (AUTO) 0.7 % (0-1); EOSINOPHILS # (AUTO) 0.3 X10'3 (0-0.9); EOSINOPHILS % (AUTO) 2.6 % (0-6); HEMATOCRIT 42.9 % (35.0-45.0); HEMOGLOBIN 14.1 g/dl (12.0-16.0); LYMPHOCYTES # (AUTO) 2.3 X10'3 (1.1-4.8); LYMPHOCYTES % (AUTO) 23.7 % (21-51); MEAN CORPUSCULAR HEMOGLOBIN 29.6 PG (27.0-31.0); MEAN CORPUSCULAR VOLUME 89.6 FL (78-98); MEAN PLATELET VOLUME 5.8 FL (7.4-10.4); MONOCYTES # (AUTO) 0.6 X10'3 (0-0.9); MONOCYTES % (AUTO) 5.7 % (2-12); NEUTROPHILS # (AUTO) 6.6 X10'3 (1.8-7.7); NEUTROPHILS % (AUTO) 67.3 % (42-75); PLATELET COUNT 514 X10'3 (140-440); RED BLOOD COUNT 4.79 X10'6 (4.20-5.60); RED CELL DISTRIBUTION WIDTH 15.2 % (11.5-14.5); WHITE BLOOD COUNT 9.8 X10'3 (4.5-11.0)
[2018-03-17 15:15] LABS: ALANINE AMINOTRANSFERASE 26 U/L (12-78); ALBUMIN 3.5 G/DL (3.4-5.0); ALBUMIN/GLOBULIN RATIO 0.7 (1.1-1.5); ALKALINE PHOSPHATASE 99 IU/L (46-116); ANION GAP 11 (8-16); ASPARTATE AMINO TRANSFERASE 15 U/L (10-37); BILIRUBIN,TOTAL 0.3 MG/DL (0.1-1.0); BLOOD UREA NITROGEN 16 MG/DL (7-18); BUN/CREATININE RATIO 18.8 (6.6-38.0); CALCIUM 9.4 MG/DL (8.5-10.1); CHLORIDE 100 MMOL/L (99-107); CREATININE 0.85 MG/DL (0.40-0.90); GLUCOSE 170 MG/DL (70-104); POTASSIUM 4.5 MMOL/L (3.5-5.1); SODIUM 137 MMOL/L (135-145); TOTAL CARBON DIOXIDE 26.5 MMOL/L (24-32); TOTAL PROTEIN 8.6 G/DL (6.4-8.2); eGFR 72 ML/MIN
[2018-03-17] MEDS ORDERED: bacitracin 15gm ointment TP ONE (18:10)
[2018-03-17] MEDS ORDERED: sulfamethoxazole/trimethoprim DS (800/160mg) tablet PO ONE (18:10)
[2018-03-17] MEDS ORDERED: cephalexin 500mg capsule PO ONE (18:10)
[2018-03-17] MEDS ORDERED: SULF1TAB49 PO (18:11)
[2018-03-17] MEDS ORDERED: CEPH500C5 PO (18:11)
[2018-03-17 18:31] VITALS: BP 148/82
== END 2018-03-17 18:32 | disposition home or self-care (01) ==
LOC: ER 11:43
DX: T81.89XA Other complications of procedures, not elsewhere classified, initial encounter (principal); E11.9 Type 2 diabetes mellitus without complications; G89.29 Other chronic pain; Z88.1 Allergy status to other antibiotic agents; Z79.82 Long term (current) use of aspirin; Z79.4 Long term (current) use of insulin; Z79.899 Other long term (current) drug therapy
CPT/HCPCS: 36415; 80053; 82948; 85025; 99284

== ENCOUNTER 2018-04-01 16:12 | Inpatient (IN) | payer MEDICAID ==
[~2018-04-01] VITALS: Ht 160 cm; Wt 97.7 kg
[~2018-04-01 16:12] MED LIST changes: +CEPH500C5 PO
[2018-04-01 16:32] LABS: BASOPHILS # (AUTO) 0.1 X10'3 (0-0.2); BASOPHILS % (AUTO) 0.8 % (0-1); EOSINOPHILS # (AUTO) 0.2 X10'3 (0-0.9); EOSINOPHILS % (AUTO) 2.4 % (0-6); HEMATOCRIT 42.5 % (35.0-45.0); HEMOGLOBIN 14.4 g/dl (12.0-16.0); LYMPHOCYTES # (AUTO) 2.2 X10'3 (1.1-4.8); LYMPHOCYTES % (AUTO) 23.5 % (21-51); MEAN CORPUSCULAR HEMOGLOBIN 29.9 PG (27.0-31.0); MEAN CORPUSCULAR VOLUME 87.9 FL (78-98); MEAN PLATELET VOLUME 6.6 FL (7.4-10.4); MONOCYTES # (AUTO) 0.6 X10'3 (0-0.9); MONOCYTES % (AUTO) 6.5 % (2-12); NEUTROPHILS # (AUTO) 6.3 X10'3 (1.8-7.7); NEUTROPHILS % (AUTO) 66.8 % (42-75); PLATELET COUNT 453 X10'3 (140-440); RED BLOOD COUNT 4.83 X10'6 (4.20-5.60); RED CELL DISTRIBUTION WIDTH 15.4 % (11.5-14.5); WHITE BLOOD COUNT 9.4 X10'3 (4.5-11.0)
[2018-04-01 16:42] LABS: INR 0.9 INR; PARTIAL THROMBOPLASTIN TIME 25 SECONDS (22-32); PROTHROMBIN TIME 9.6 SECONDS (9.0-12.0)
[2018-04-01] MEDS ORDERED: aspirin 81mg tab.chew PO ONE (16:45)
[2018-04-01] MEDS ORDERED: nitroGLYCERIN 0.4mg SUBLingual tab SL PRN (16:45)
[2018-04-01 16:47] LABS: ALANINE AMINOTRANSFERASE 34 U/L (12-78); ALBUMIN 3.5 G/DL (3.4-5.0); ALBUMIN/GLOBULIN RATIO 0.7 (1.1-1.5); ALKALINE PHOSPHATASE 92 IU/L (46-116); ANION GAP 11 (8-16); ASPARTATE AMINO TRANSFERASE 18 U/L (10-37); BILIRUBIN,TOTAL 0.2 MG/DL (0.1-1.0); BLOOD UREA NITROGEN 14 MG/DL (7-18); BUN/CREATININE RATIO 15.2 (6.6-38.0); CALCIUM 9.5 MG/DL (8.5-10.1); CHLORIDE 101 MMOL/L (99-107); CREATININE 0.92 MG/DL (0.40-0.90); GLUCOSE 290 MG/DL (70-104); POTASSIUM 4.3 MMOL/L (3.5-5.1); SODIUM 137 MMOL/L (135-145); TOTAL CARBON DIOXIDE 25.5 MMOL/L (24-32); TOTAL PROTEIN 8.4 G/DL (6.4-8.2); eGFR 65 ML/MIN
[2018-04-01] MEDS ORDERED: morphine 4 MG/ML inj SYRINge IV ONE (17:05)
[2018-04-01] MEDS ORDERED: ondansetron/PF 4mg/2ml inj IV ONE (17:05)
[2018-04-01 17:11] LABS: D-DIMER 2.19 MG/L FEU (0-0.50)
[2018-04-01] MEDS ORDERED: normal saline 1000ML IV soln IVB ONE (17:15)
[2018-04-01 17:16] LABS: MAGNESIUM 1.8 MG/DL (1.5-2.4)
[2018-04-01] MEDS ORDERED: iohexol 350MG/ML 100ml bottle IV ONE (17:19)
[2018-04-01] MEDS: MESSAGE TO NURSING PO NR (17:45)
[2018-04-01] MEDS ORDERED: ASPI-1265 PO (18:34)
[2018-04-01] MEDS ORDERED: LANTUS SQ (18:36)
[2018-04-01] MEDS ORDERED: ATOR40TA PO (18:38)
[2018-04-01] MEDS: apixaban 5mg tablet PO SCH ×2 (18:49→19:20)
[2018-04-01] MEDS: morphine 4 MG/ML inj SYRINge IV ONE ×2 (18:50→19:21)
[2018-04-01] MEDS ORDERED: bisacodyl 10mg suppository rectal RC PRN (21:15)
[2018-04-01] MEDS ORDERED: magnesium hydroxide 30ml (MOM) UD suspension PO PRN (21:15)
[2018-04-01] MEDS ORDERED: acetaminophen 325mg tablet PO PRN (21:15)
[2018-04-01] MEDS ORDERED: dextrose ORAL solution 15 GM/59 ML bottle PO PRN ×2 (21:20)
[2018-04-01] MEDS ORDERED: MESSAGE TO PHARMACY PO ONE (21:20)
[2018-04-01] MEDS ORDERED: dextrose 50%-water 50ml dispensing syringe IV PRN ×2 (21:20)
[2018-04-01] MEDS ORDERED: glucagon, human recombinant 1mg kit SUBCUT PRN (21:20)
[2018-04-01 23:00] VITALS: BP 146/92
[2018-04-02] VITALS (7 sets, daily range): BP systolic 114–170; BP diastolic 80–99
[2018-04-02] MEDS ORDERED: heparin 10,000 units/1 ML INJ IV ONE ×2 (02:05→07:00)
[2018-04-02] MEDS: cephalexin 500mg capsule PO SCH ×4 (02:13→22:04)
[2018-04-02] MEDS: HYDROcodone/acetaminophen 10/325mg tab PO PRN ×4 (04:05→23:26)
[2018-04-02] MEDS ORDERED: metoprolol tartrate 12.5mg (1/2 tablet) PO SCH ×2 (04:55→08:00)
[2018-04-02 05:32] LABS: BASOPHILS # (AUTO) 0.1 X10'3 (0-0.2); BASOPHILS % (AUTO) 0.9 % (0-1); EOSINOPHILS # (AUTO) 0.2 X10'3 (0-0.9); EOSINOPHILS % (AUTO) 1.8 % (0-6); HEMATOCRIT 38.5 % (35.0-45.0); HEMOGLOBIN 13.1 g/dl (12.0-16.0); LYMPHOCYTES # (AUTO) 2.3 X10'3 (1.1-4.8); LYMPHOCYTES % (AUTO) 22.1 % (21-51); MEAN CORPUSCULAR HEMOGLOBIN 29.9 PG (27.0-31.0); MEAN CORPUSCULAR VOLUME 87.9 FL (78-98); MEAN PLATELET VOLUME 6.5 FL (7.4-10.4); MONOCYTES # (AUTO) 0.6 X10'3 (0-0.9); MONOCYTES % (AUTO) 5.7 % (2-12); NEUTROPHILS # (AUTO) 7.3 X10'3 (1.8-7.7); NEUTROPHILS % (AUTO) 69.5 % (42-75); PLATELET COUNT 411 X10'3 (140-440); RED BLOOD COUNT 4.38 X10'6 (4.20-5.60); RED CELL DISTRIBUTION WIDTH 15.1 % (11.5-14.5); WHITE BLOOD COUNT 10.5 X10'3 (4.5-11.0)
[2018-04-02 05:47] LABS: ALANINE AMINOTRANSFERASE 30 U/L (12-78); ALBUMIN 3.1 G/DL (3.4-5.0); ALBUMIN/GLOBULIN RATIO 0.7 (1.1-1.5); ALKALINE PHOSPHATASE 79 IU/L (46-116); ANION GAP 7 (8-16); ASPARTATE AMINO TRANSFERASE 77 U/L (10-37); BILIRUBIN,TOTAL 0.3 MG/DL (0.1-1.0); BLOOD UREA NITROGEN 9 MG/DL (7-18); BUN/CREATININE RATIO 11.3 (6.6-38.0); CALCIUM 8.6 MG/DL (8.5-10.1); CHLORIDE 101 MMOL/L (99-107); GLUCOSE 216 MG/DL (70-104); POTASSIUM 3.7 MMOL/L (3.5-5.1); SODIUM 132 MMOL/L (135-145); TOTAL CARBON DIOXIDE 24.1 MMOL/L (24-32); TOTAL PROTEIN 7.4 G/DL (6.4-8.2); eGFR 77 ML/MIN
[2018-04-02] MEDS: metoprolol tartrate 12.5mg (1/2 tablet) PO SCH ×2 (07:53→22:03)
[2018-04-02] MEDS: vitamin D (cholecalciferol) 1,000 unit tablet PO SCH (07:53)
[2018-04-02] MEDS: buPROPion 75mg tablet PO SCH ×3 (07:53→22:03)
[2018-04-02] MEDS: nystatin/triamcinolone cream 15gm TP SCH ×2 (07:53→20:00)
[2018-04-02] MEDS ORDERED: metoprolol tartrate 25mg tablet PO SCH (08:00)
[2018-04-02] MEDS ORDERED: lisinopril 2.5mg tablet PO SCH (08:00)
[2018-04-02] MEDS: insulin Lispro (HumaLOG) vial - multi-dose SQ SCH ×3 (10:01→19:39)
[2018-04-02] MEDS: MESSAGE TO NURSING PO NR (10:03)
[2018-04-02] MEDS ORDERED: hydrALAZINE 20mg/ml inj. IV PRN (14:30)
[2018-04-02 16:47] LABS: PARTIAL THROMBOPLASTIN TIME 52 SECONDS (22-32)
[2018-04-02] MEDS: insulin glargine (Lantus) pen - multi-dose SQ SCH (21:00)
[2018-04-02] MEDS ORDERED: warfarin 5mg tablet PO ONE (21:00)
[2018-04-02] MEDS ORDERED: warfarin 1mg tablet PO ONE (21:00)
[2018-04-02 22:15] LABS: PARTIAL THROMBOPLASTIN TIME 57 SECONDS (22-32); PROTHROMBIN TIME 10.6 SECONDS (9.0-12.0)
[2018-04-02] MEDS: tirofiban 5mg in NS 100mL 100 ML IV SCH (22:18)
[2018-04-03] VITALS (22 sets, daily range): BP systolic 92–149; BP diastolic 50–85
[2018-04-03] MEDS: tirofiban 5mg in NS 100mL 100 ML IV SCH ×5 (00:49→22:47)
[2018-04-03] MEDS: cephalexin 500mg capsule PO SCH ×4 (04:00→20:18)
[2018-04-03 05:10] LABS: BASOPHILS % (AUTO) 0.2 % (0-1); EOSINOPHILS # (AUTO) 0.1 X10'3 (0-0.9); EOSINOPHILS % (AUTO) 0.8 % (0-6); HEMATOCRIT 39.4 % (35.0-45.0); HEMOGLOBIN 13.3 g/dl (12.0-16.0); LYMPHOCYTES # (AUTO) 1.7 X10'3 (1.1-4.8); MEAN CORPUSCULAR HEMOGLOBIN 29.7 PG (27.0-31.0); MEAN CORPUSCULAR HGB CONC 33.7 % (33.0-36.5); MEAN CORPUSCULAR VOLUME 88.2 FL (78-98); MEAN PLATELET VOLUME 6.7 FL (7.4-10.4); MONOCYTES # (AUTO) 0.4 X10'3 (0-0.9); MONOCYTES % (AUTO) 2.8 % (2-12); NEUTROPHILS # (AUTO) 11.7 X10'3 (1.8-7.7); NEUTROPHILS % (AUTO) 84.2 % (42-75); PLATELET COUNT 431 X10'3 (140-440); RED BLOOD COUNT 4.46 X10'6 (4.20-5.60); RED CELL DISTRIBUTION WIDTH 15.2 % (11.5-14.5); WHITE BLOOD COUNT 13.9 X10'3 (4.5-11.0)
[2018-04-03] MEDS: ondansetron/PF 4mg/2ml inj IV PRN ×3 (05:12→11:09)
[2018-04-03 05:28] LABS: PROTHROMBIN TIME 10.7 SECONDS (9.0-12.0)
[2018-04-03 05:56] LABS: ALANINE AMINOTRANSFERASE 41 U/L (12-78); ALBUMIN/GLOBULIN RATIO 0.7 (1.1-1.5); ALKALINE PHOSPHATASE 84 IU/L (46-116); ANION GAP 11 (8-16); ASPARTATE AMINO TRANSFERASE 123 U/L (10-37); BILIRUBIN,TOTAL 0.4 MG/DL (0.1-1.0); BLOOD UREA NITROGEN 12 MG/DL (7-18); BUN/CREATININE RATIO 14.1 (6.6-38.0); CALCIUM 8.8 MG/DL (8.5-10.1); CHLORIDE 101 MMOL/L (99-107); CREATININE 0.85 MG/DL (0.40-0.90); GLUCOSE 218 MG/DL (70-104); POTASSIUM 3.7 MMOL/L (3.5-5.1); SODIUM 136 MMOL/L (135-145); TOTAL PROTEIN 7.4 G/DL (6.4-8.2); eGFR 72 ML/MIN
[2018-04-03] MEDS: buPROPion 75mg tablet PO SCH ×3 (07:32→20:19)
[2018-04-03] MEDS: HYDROcodone/acetaminophen 10/325mg tab PO PRN ×4 (07:32→22:22)
[2018-04-03] MEDS: metoprolol tartrate 12.5mg (1/2 tablet) PO SCH ×2 (07:32→20:19)
[2018-04-03] MEDS: vitamin D (cholecalciferol) 1,000 unit tablet PO SCH (07:32)
[2018-04-03] MEDS: lisinopril 10 MG tablet PO SCH (07:33)
[2018-04-03] MEDS ORDERED: nitroGLYCERIN-Tridil 50MG/D5W 250 ML IV ONE (07:38)
[2018-04-03] MEDS ORDERED: iohexol 350 MG/ML 50ML vial IV ONE (07:38)
[2018-04-03] MEDS ORDERED: heparin 1,000unit/ml 10ml vial 10 ML ONE (07:38)
[2018-04-03] MEDS ORDERED: iohexol 350MG/ML 100ml bottle IV ONE ×3 (07:38→09:00)
[2018-04-03] MEDS ORDERED: LIDOcaine 1% w/EPI 1:100,000 30ml vial (MDV) ONE (07:39)
[2018-04-03] MEDS: nystatin/triamcinolone cream 15gm TP SCH ×2 (07:55→20:00)
[2018-04-03] MEDS ORDERED: fentaNYL/PF 50MCG/1 ML 2ML syringe ONE (08:17)
[2018-04-03] MEDS ORDERED: midazolam 2 mg/2 ml injection ONE (08:17)
[2018-04-03] MEDS ORDERED: ticagrelor 90mg tablet ONE (09:50)
[2018-04-03] MEDS: MESSAGE TO NURSING PO NR (10:00)
[2018-04-03] MEDS ORDERED: aspirin 81mg tab.chew PO ONE (11:40)
[2018-04-03] MEDS: normal saline 1000ml 1,000 ML IV SCH ×2 (11:45→22:47)
[2018-04-03] MEDS: insulin Lispro (HumaLOG) vial - multi-dose SQ SCH (13:12)
[2018-04-03] MEDS: benzonatate 100mg capsule PO PRN (15:26)
[2018-04-03] MEDS: ticagrelor 90mg tablet PO SCH (20:18)
[2018-04-03] MEDS: atorvastatin 20mg tablet PO SCH (20:19)
[2018-04-03] MEDS: insulin glargine (Lantus) pen - multi-dose SQ SCH (20:49)
[2018-04-04] VITALS (15 sets, daily range): BP systolic 101–138; BP diastolic 54–81
[2018-04-04] MEDS: tirofiban 5mg in NS 100mL 100 ML IV SCH ×2 (04:30→09:42)
[2018-04-04 05:26] LABS: ISTAT HGB ART 12.2 g/dl (12.0-16.0); ISTAT Hct ART 36 %PCV (35-48); ISTAT O2 SATURATION ARTERIAL 96 % (95-98); ISTAT SOURCE ART
[2018-04-04 05:26] LABS: ISTAT Hct MIX 36 %PCV (35-48); ISTAT O2 SATURATION MIX VENOUS 67 % (60-80); ISTAT SOURCE MIX
[2018-04-04] MEDS: cephalexin 500mg capsule PO SCH ×4 (05:38→20:00)
[2018-04-04] MEDS: HYDROcodone/acetaminophen 10/325mg tab PO PRN ×2 (05:42→21:20)
[2018-04-04 06:09] LABS: BASOPHILS % (AUTO) 0.2 % (0-1); EOSINOPHILS % (AUTO) 0.3 % (0-6); HEMATOCRIT 32.2 % (35.0-45.0); LYMPHOCYTES # (AUTO) 1.5 X10'3 (1.1-4.8); LYMPHOCYTES % (AUTO) 16.2 % (21-51); MEAN CORPUSCULAR HEMOGLOBIN 29.8 PG (27.0-31.0); MEAN CORPUSCULAR VOLUME 87.6 FL (78-98); MEAN PLATELET VOLUME 6.4 FL (7.4-10.4); MONOCYTES # (AUTO) 0.7 X10'3 (0-0.9); MONOCYTES % (AUTO) 7.6 % (2-12); NEUTROPHILS # (AUTO) 7.2 X10'3 (1.8-7.7); NEUTROPHILS % (AUTO) 75.7 % (42-75); PLATELET COUNT 387 X10'3 (140-440); RED BLOOD COUNT 3.68 X10'6 (4.20-5.60); WHITE BLOOD COUNT 9.5 X10'3 (4.5-11.0)
[2018-04-04 06:19] LABS: PROTHROMBIN TIME 10.6 SECONDS (9.0-12.0)
[2018-04-04 06:39] LABS: ALANINE AMINOTRANSFERASE 29 U/L (12-78); ALBUMIN 2.5 G/DL (3.4-5.0); ALBUMIN/GLOBULIN RATIO 0.6 (1.1-1.5); ALKALINE PHOSPHATASE 64 IU/L (46-116); ANION GAP 10 (8-16); ASPARTATE AMINO TRANSFERASE 54 U/L (10-37); BILIRUBIN,TOTAL 0.4 MG/DL (0.1-1.0); BLOOD UREA NITROGEN 7 MG/DL (7-18); CALCIUM 8.2 MG/DL (8.5-10.1); CHLORIDE 104 MMOL/L (99-107); GLUCOSE 210 MG/DL (70-104); POTASSIUM 3.2 MMOL/L (3.5-5.1); SODIUM 137 MMOL/L (135-145); TOTAL CARBON DIOXIDE 22.8 MMOL/L (24-32); TOTAL PROTEIN 6.5 G/DL (6.4-8.2); eGFR 90 ML/MIN
[2018-04-04 06:48] LABS: PARTIAL THROMBOPLASTIN TIME 34 SECONDS (22-32)
[2018-04-04 07:14] LABS: CHOL/HDL RATIO 3.1 (0.00-4.99); CHOLESTEROL 98 MG/DL (0-200); HDL CHOLESTEROL 32 MG/DL (35-60); LDL CHOLESTEROL 53 MG/DL (50-100); TRIGLYCERIDES 176 MG/DL (20-135)
[2018-04-04] MEDS: heparin 10,000 units/1 ML INJ IV PRN ×2 (07:24→20:47)
[2018-04-04] MEDS: normal saline 1000ml 1,000 ML IV SCH ×3 (07:45→22:24)
[2018-04-04] MEDS: lisinopril 10 MG tablet PO SCH (08:00)
[2018-04-04] MEDS ORDERED: potassium Cl 20 mEq SR tablet PO STA (08:22)
[2018-04-04] MEDS ORDERED: potassium Cl 20 mEq SR tablet PO PRN (08:25)
[2018-04-04] MEDS ORDERED: potassium Cl 40MEQ/NS 500ml 500 ML IV PRN ×2 (08:25)
[2018-04-04] MEDS ORDERED: furosemide 20 MG/2 ML vial IV ONE (08:25)
[2018-04-04] MEDS: vitamin D (cholecalciferol) 1,000 unit tablet PO SCH (09:08)
[2018-04-04] MEDS: ticagrelor 90mg tablet PO SCH ×2 (09:08→20:56)
[2018-04-04] MEDS: buPROPion 75mg tablet PO SCH ×3 (09:09→20:56)
[2018-04-04] MEDS: aspirin 81mg tab.chew PO SCH (09:09)
[2018-04-04] MEDS: nystatin/triamcinolone cream 15gm TP SCH ×2 (09:10→20:00)
[2018-04-04] MEDS: metoprolol tartrate 12.5mg (1/2 tablet) PO SCH ×2 (09:10→20:56)
[2018-04-04] MEDS: insulin Lispro (HumaLOG) vial - multi-dose SQ SCH ×3 (09:14→18:56)
[2018-04-04 15:21] LABS: ANTITHROMBIN ACTIVITY 108 % (75-135); ANTITHROMBIN ANTIGEN 101 % (72-124); PROTEIN S, FREE 84 % (57-157); PROTEIN S, TOTAL 115 % (60-150)
[2018-04-04] MEDS: atorvastatin 20mg tablet PO SCH (20:58)
[2018-04-04] MEDS: lactobacillus rhamnosus 10,000 MMU CELLS/CAPSULE PO SCH (20:58)
[2018-04-04] MEDS ORDERED: warfarin 3mg tablet PO ONE (21:00)
[2018-04-04] MEDS: insulin glargine (Lantus) pen - multi-dose SQ SCH (21:09)
[2018-04-05] MEDS ORDERED: pyridostigmine br 60mg tablet PO SCH
[2018-04-05] MEDS: cephalexin 500mg capsule PO SCH ×3 (01:53→13:19)
[2018-04-05 02:56] LABS: BASOPHILS % (AUTO) 0.5 % (0-1); EOSINOPHILS # (AUTO) 0.1 X10'3 (0-0.9); EOSINOPHILS % (AUTO) 1.6 % (0-6); HEMOGLOBIN 10.6 g/dl (12.0-16.0); LYMPHOCYTES # (AUTO) 2.4 X10'3 (1.1-4.8); LYMPHOCYTES % (AUTO) 26.7 % (21-51); MEAN CORPUSCULAR HEMOGLOBIN 30.2 PG (27.0-31.0); MEAN CORPUSCULAR HGB CONC 34.3 % (33.0-36.5); MEAN PLATELET VOLUME 6.6 FL (7.4-10.4); MONOCYTES # (AUTO) 0.6 X10'3 (0-0.9); MONOCYTES % (AUTO) 6.6 % (2-12); NEUTROPHILS # (AUTO) 5.9 X10'3 (1.8-7.7); NEUTROPHILS % (AUTO) 64.6 % (42-75); PLATELET COUNT 375 X10'3 (140-440); RED BLOOD COUNT 3.52 X10'6 (4.20-5.60); WHITE BLOOD COUNT 9.1 X10'3 (4.5-11.0)
[2018-04-05 03:00] VITALS: BP 112/67
[2018-04-05 03:10] LABS: PROTHROMBIN TIME 10.7 SECONDS (9.0-12.0)
[2018-04-05 03:12] LABS: ALANINE AMINOTRANSFERASE 21 U/L (12-78); ALBUMIN 2.5 G/DL (3.4-5.0); ALBUMIN/GLOBULIN RATIO 0.6 (1.1-1.5); ALKALINE PHOSPHATASE 64 IU/L (46-116); ANION GAP 8 (8-16); ASPARTATE AMINO TRANSFERASE 33 U/L (10-37); BILIRUBIN,TOTAL 0.4 MG/DL (0.1-1.0); BLOOD UREA NITROGEN 6 MG/DL (7-18); BUN/CREATININE RATIO 8.1 (6.6-38.0); CALCIUM 7.7 MG/DL (8.5-10.1); CHLORIDE 105 MMOL/L (99-107); CREATININE 0.74 MG/DL (0.40-0.90); GLUCOSE 122 MG/DL (70-104); MAGNESIUM 1.6 MG/DL (1.5-2.4); POTASSIUM 3.1 MMOL/L (3.5-5.1); SODIUM 138 MMOL/L (135-145); TOTAL CARBON DIOXIDE 24.7 MMOL/L (24-32); TOTAL PROTEIN 6.6 G/DL (6.4-8.2); eGFR 84 ML/MIN
[2018-04-05 06:00] VITALS: BP 95/56
[2018-04-05] MEDS ORDERED: metoprolol tartrate 25mg tablet PO SCH (08:00)
[2018-04-05] MEDS: nystatin/triamcinolone cream 15gm TP SCH (08:00)
[2018-04-05 08:05] VITALS: BP 120/74
[2018-04-05] MEDS: buPROPion 75mg tablet PO SCH ×2 (08:16→12:30)
[2018-04-05] MEDS: insulin Lispro (HumaLOG) vial - multi-dose SQ SCH ×2 (08:16→12:31)
[2018-04-05] MEDS: lactobacillus rhamnosus 10,000 MMU CELLS/CAPSULE PO SCH (08:17)
[2018-04-05] MEDS: vitamin D (cholecalciferol) 1,000 unit tablet PO SCH (08:17)
[2018-04-05] MEDS: ticagrelor 90mg tablet PO SCH (08:17)
[2018-04-05] MEDS: aspirin 81mg tab.chew PO SCH (08:18)
[2018-04-05] MEDS: potassium Cl 20 mEq SR tablet PO PRN ×2 (08:18→12:30)
[2018-04-05 11:00] VITALS: BP 116/76
[2018-04-05] MEDS: normal saline 1000ml 1,000 ML IV SCH (12:33)
[2018-04-05 15:00] VITALS: BP 135/81
[2018-04-05] MEDS: benzonatate 100mg capsule PO PRN (15:30)
[2018-04-05] MEDS ORDERED: COU3T PO (15:50)
[2018-04-05] MEDS ORDERED: TICA90TA PO (15:50)
[2018-04-05] MEDS ORDERED: ENOX100S3 SQ (15:50)
[2018-04-05] MEDS ORDERED: METO25TA6 PO (15:50)
[2018-04-05] MEDS ORDERED: ATOR40TA PO (15:50)
[2018-04-05] MEDS ORDERED: warfarin 3mg tablet PO ONE (21:00)
== END 2018-04-05 17:10 | disposition home or self-care (01) | DRG 174 ==
LOC: ER 16:13 → ED HOLD 21:14 → EDBEDREQ 21:50 → SUR 3N 22:25 → PCU 3S 04-02 00:58 → ICU 2S 04-03 10:14 → PCU 3S 04-04 11:30
PROVIDERS: ADMIT Emergency Medicine; ATTEND Family Medicine
PROC: B32T1ZZ Computerized Tomography (CT Scan) of Left Pulmonary Artery using Low Osmolar Contrast (ICD-10-PCS; 2018-04-01)
PROC: B3201ZZ Computerized Tomography (CT Scan) of Thoracic Aorta using Low Osmolar Contrast (ICD-10-PCS; 2018-04-01)
PROC: B32S1ZZ Computerized Tomography (CT Scan) of Right Pulmonary Artery using Low Osmolar Contrast (ICD-10-PCS; 2018-04-01)
PROC: 027035Z Dilation of Coronary Artery, One Artery with Two Drug-eluting Intraluminal Devices, Percutaneous Approach (ICD-10-PCS; principal; 2018-04-03)
PROC: 4A023N8 Measurement of Cardiac Sampling and Pressure, Bilateral, Percutaneous Approach (ICD-10-PCS; 2018-04-03)
PROC: B2111ZZ Fluoroscopy of Multiple Coronary Arteries using Low Osmolar Contrast (ICD-10-PCS; 2018-04-03)
PROC: B2131ZZ Fluoroscopy of Multiple Coronary Artery Bypass Grafts using Low Osmolar Contrast (ICD-10-PCS; 2018-04-03)
PROC: B2181ZZ Fluoroscopy of Left Internal Mammary Bypass Graft using Low Osmolar Contrast (ICD-10-PCS; 2018-04-03)
PROC: B2151ZZ Fluoroscopy of Left Heart using Low Osmolar Contrast (ICD-10-PCS; 2018-04-03)
DX: I21.4 Non-ST elevation (NSTEMI) myocardial infarction (principal); I26.99 Other pulmonary embolism without acute cor pulmonale; E11.9 Type 2 diabetes mellitus without complications; I10 Essential (primary) hypertension; E78.5 Hyperlipidemia, unspecified; E66.9 Obesity, unspecified; E78.00 Pure hypercholesterolemia, unspecified; F17.210 Nicotine dependence, cigarettes, uncomplicated; E87.6 Hypokalemia; J44.9 Chronic obstructive pulmonary disease, unspecified; I25.10 Atherosclerotic heart disease of native coronary artery without angina pectoris; G89.29 Other chronic pain; I25.2 Old myocardial infarction; Z79.01 Long term (current) use of anticoagulants; Z79.82 Long term (current) use of aspirin; Z79.84 Long term (current) use of oral hypoglycemic drugs; Z79.899 Other long term (current) drug therapy; Z82.49 Family history of ischemic heart disease and other diseases of the circulatory system; Z86.718 Personal history of other venous thrombosis and embolism; Z88.1 Allergy status to other antibiotic agents; Z71.6 Tobacco abuse counseling; Z90.49 Acquired absence of other specified parts of digestive tract; Z95.1 Presence of aortocoronary bypass graft; Z88.8 Allergy status to other drugs, medicaments and biological substances
CPT/HCPCS: 36415; 71045; 71275; 80053; 80061; 81479; 82803; 82948; 83036; 83735; 83880; 83891; 83894; 83898; 84132; 84484; 85014; 85025; 85300; 85301; 85303; 85305; 85306; 85347; 85379; 85610; 85730; 86146; 86147; 87070; 93005; 93306; 93459; 93970; 96361; 96374; 96375; 96376; 99152; 99153; 99285; A4620; A6213; A6251; A6257; A6258; A6402; A6449; C1725; C1769; C1874; C1887; C1894; C9600; J1644; J1815; J1940; J2250; J2270; J2405; J3010; J3246; J3490; J7030; Q9967

== ENCOUNTER → 2018-08-12 | Outpatient (CLI) | payer MEDICARE, MEDICAID ==
[~2018-08-12] MED LIST changes: +ASPI-1265 PO; -ASPI-41 PO; -ATOR-2 PO; +ATOR40TA PO; -COL100C PO; +COU3T PO; +METF-438 PO; -METF10004 PO; +TICA90TA PO
== END | disposition home or self-care (01) ==
LOC: 64 CT 15:53
PROVIDERS: ATTEND Thoracic Surgery (Cardiothoracic Vascular Surgery)
DX: E04.9 Nontoxic goiter, unspecified (principal); R22.2 Localized swelling, mass and lump, trunk; M47.814 Spondylosis without myelopathy or radiculopathy, thoracic region; I25.2 Old myocardial infarction; I10 Essential (primary) hypertension; E11.9 Type 2 diabetes mellitus without complications; F17.200 Nicotine dependence, unspecified, uncomplicated; Z90.49 Acquired absence of other specified parts of digestive tract; Z79.82 Long term (current) use of aspirin; Z79.4 Long term (current) use of insulin; Z79.01 Long term (current) use of anticoagulants
CPT/HCPCS: 71250

== ENCOUNTER 2019-02-16 09:59 | Outpatient (CLI) | payer MEDICARE ==
[~2019-02-16 09:59] MED LIST changes: +MICO45CR11; -MONVCR
== END 2019-02-16 23:59 | disposition home or self-care (01) ==
LOC: 64 CT 09:59
PROVIDERS: ATTEND Thoracic Surgery (Cardiothoracic Vascular Surgery)
DX: Z48.812 Encounter for surgical aftercare following surgery on the circulatory system (principal); I10 Essential (primary) hypertension; E11.9 Type 2 diabetes mellitus without complications; F17.200 Nicotine dependence, unspecified, uncomplicated; Z90.49 Acquired absence of other specified parts of digestive tract; Z95.1 Presence of aortocoronary bypass graft
CPT/HCPCS: 71250

== ENCOUNTER 2022-07-23 11:09 | Emergency (ER) | payer MEDICARE ==
[~2022-07-23] VITALS: Ht 162.6 cm; Wt 88.6 kg
[~2022-07-23 11:09] MED LIST changes: -BENZ-49 PO; +BUPR-297 PO; -BUPR75TA12 PO; -CEPH500C5 PO; +LOP25T PO; -METO25TA6 PO; -MICO45CR11; +MICO45CR46; -MYCOL30CR TP; +NYST30CR35 TP; +TES100C PO
[2022-07-23 11:43] VITALS: BP 195/105
== END 2022-07-23 13:30 | disposition left against medical advice (07) ==
LOC: ER 11:09
DX: M54.2 Cervicalgia (principal); Z53.21 Procedure and treatment not carried out due to patient leaving prior to being seen by health care provider